=== PATIENT | female | born 1990 | race Caucasian/White ===

== ENCOUNTER 2024-05-14 04:56 | Day surgery (SDC) | payer BC, OTHER ==
[2024-05-12 17:47] VITALS: BMI 21.9
[2024-05-14] MEDS ORDERED: LIDOCAINE 1%/EPI 1:100000 (20 ML MULTI DOSE VIAL) ONE (12:08)
[2024-05-14] MEDS ORDERED: PROPOFOL 40 ML ONE ×2 (12:59→14:20)
[2024-05-14] MEDS ORDERED: ROCURONIUM BROMIDE 50 MG/5 ML SYRINGE ONE (13:00)
[2024-05-14] MEDS ORDERED: MIDAZOLAM HCL 2 MG/2 ML SINGLE DOSE VIAL ONE (13:00)
[2024-05-14] MEDS ORDERED: SUCCINYLCHOLINE CHLORIDE 200 MG/10 ML SYRINGE ONE (13:00)
[2024-05-14] MEDS ORDERED: HYDROmorphone HCl 2 MG/ML VIAL ONE (13:10)
[2024-05-14] MEDS ORDERED: PROPOFOL 20 ML ONE ×3 (13:11→14:20)
[2024-05-14] MEDS: OXYMETAZOLINE 0.05% NASAL SOLUTION 15 ML BOTTLE NS ONE (13:32)
[2024-05-14] MEDS ORDERED: METOPROLOL TARTRATE 5 MG/5 ML VIAL ONE (13:43)
[2024-05-14] MEDS: LIDOCAINE 1%/EPI 1:100000 (20 ML MULTI DOSE VIAL) IJ ONE (15:00)
[2024-05-14] MEDS ORDERED: SUGAMMADEX SODIUM 200 MG/2 ML VIAL ONE (15:09)
[2024-05-14] MEDS: BACITRACIN ZINC 15 GM TUBE TOPICAL OINTMENT TP ONE (15:17)
[2024-05-14] MEDS ORDERED: oxyCODONE HCL 5 MG TABLET PO PRN (16:10)
[2024-05-14] MEDS ORDERED: PROMETHAZINE HCL 25 MG/1 ML VIAL IVPB PRN (16:10)
[2024-05-14] MEDS ORDERED: ONDANSETRON 4 MG/2 ML VIAL IVPUSH PRN (16:10)
[2024-05-14] MEDS: LACTATED RINGERS SOLUTION 1,000 ML IV SCH (17:36)
[2024-05-14 18:04] VITALS: RESP 18
[2024-05-14 18:32] VITALS: BP 124/86; PULSE 74; TEMP 96.5
== END 2024-05-14 19:15 | disposition home or self-care (01) ==
LOC: JASU-SURG 04:56
PROVIDERS: ATTEND Otolaryngology
PROC: 09TU8ZZ Resection of Right Ethmoid Sinus, Via Natural or Artificial Opening Endoscopic (ICD-10-PCS; 2024-05-14)
PROC: 8E09XBZ Computer Assisted Procedure of Head and Neck Region (ICD-10-PCS; 2024-05-14)
PROC: 09TL8ZZ Resection of Nasal Turbinate, Via Natural or Artificial Opening Endoscopic (ICD-10-PCS; 2024-05-14)
PROC: 09TV8ZZ Resection of Left Ethmoid Sinus, Via Natural or Artificial Opening Endoscopic (ICD-10-PCS; principal; 2024-05-14 12:30)
DX: J32.4 Chronic pansinusitis (principal); J34.2 Deviated nasal septum; J34.3 Hypertrophy of nasal turbinates
CPT/HCPCS: 81025; 88304-TC; 88311-TC; 94760